=== PATIENT | male | born 1980 | race Caucasian/White ===

== ENCOUNTER 2017-06-16 19:05 | Emergency (ER) | payer OTHER ==
[~2017-06-16] VITALS: Ht 180.3 cm; Wt 79.8 kg
[2017-06-16] MEDS ORDERED: IBUPROFEN TAB 600MG (19:29)
--- NOTE | 2017-06-16 19:31 | NUR ---
PT PRESENTS TO ER W/ C/O RT GREAT TOE PAIN X2 WEEKS. STATES HE WENT TO AN URGENT CARE LAST WEEK AND HAD AN XRAY REVEALING A FRACTURE, WHICH HAS SINCE BEEN UNTREATED. STATES THE PAIN HAS BEEN GETTING WORSE UPON MOVEMENT, PROMPTING ER VISIT. PT IS A&OX4. NO ACUTE SIGNS OF DISTRESS. PT RESTING IN BED IN LOWEST AND LOCKED POSITION. BREATHING EVEN AND UNLABORED. NO ACUTE TRAUMA NOTED TO TOE.
--- NOTE | 2017-06-16 19:34 | NUR ---
DR AL RIVERA MD AT BEDSIDE FOR MSE.
--- NOTE | 2017-06-16 19:42 | NUR ---
LAB AT BEDSIDE FOR BLOOD DRAW.
--- NOTE | 2017-06-16 19:44 | NUR ---
RADIOLOGY AT BEDSIDE FOR XRAY.
[2017-06-16] MEDS ORDERED: INDOMETHACIN 25 MG CAPSULE PO ONE (19:45)
[2017-06-16] MEDS ORDERED: INDOMETHACIN 25 MG CAPSULE ONE (19:53)
[2017-06-16] MEDS ORDERED: CEFTRIAXONE 1 G VIAL ONE (20:25)
[2017-06-16] MEDS ORDERED: SULFAMETH/TRIMETH 800/160 MG TABLET ONE (20:25)
[2017-06-16] MEDS ORDERED: SULFAMETH/TRIMETH 800/160 MG TABLET PO ONE (20:30)
[2017-06-16] MEDS ORDERED: CEFTRIAXONE 1 G VIAL IM ONE (20:30)
--- NOTE | 2017-06-16 20:58 | NUR ---
Patient discharged to home in stable conditon. Written and verbal after care instructions given. Patient verbalizes understanding of instructions. PT ambulated from ER w/ steady gait on crutches. Pt took all personal belongings.
[2017-06-16 20:59] VITALS: BP 114/86
== END 2017-06-16 21:00 | disposition home or self-care (01) ==
LOC: ER 19:05
DX: S92.811A Other fracture of right foot, initial encounter for closed fracture (principal); L03.115 Cellulitis of right lower limb; Z79.1 Long term (current) use of non-steroidal anti-inflammatories (NSAID); X58.XXXA Exposure to other specified factors, initial encounter; Y93.89 Activity, other specified; Y92.89 Other specified places as the place of occurrence of the external cause; Y99.8 Other external cause status
CPT/HCPCS: 36415; 73630; 84550; A4663; J0696; J3490